=== PATIENT | female | born 1995 | race Caucasian/White ===

== ENCOUNTER 2016-09-05 19:31 | Emergency (ER) | payer OTHER, MEDICAID ==
[~2016-09-05] VITALS: Ht 167.6 cm; Wt 65.7 kg
[~2016-09-05 19:31] MED LIST: PENI500T PO; PRED20 PO
[2016-09-05 19:53] VITALS: BP 98/59; PULSE 88; RESP 18; TEMP 98.5; O2SAT 99
[2016-09-05] MEDS ORDERED: PREN29TA PO (20:06)
[2016-09-05 20:50] VITALS: BP 106/65; PULSE 72; RESP 16; O2SAT 98
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
== END 2016-09-05 21:20 | disposition home or self-care (01) ==
LOC: PHEFT 19:31
DX: O26.892 Other specified pregnancy related conditions, second trimester (principal); S16.1XXA Strain of muscle, fascia and tendon at neck level, initial encounter; V89.2XXA Person injured in unspecified motor-vehicle accident, traffic, initial encounter; Z3A.21 21 weeks gestation of pregnancy; Y92.410 Unspecified street and highway as the place of occurrence of the external cause
CPT/HCPCS: 99284

== ENCOUNTER 2016-11-14 09:06 | Emergency (ER) | payer MEDICAID ==
[~2016-11-14 09:06] MED LIST changes: -PENI500T PO; -PRED20 PO; +PREN29TA PO
[2016-11-14 09:37] VITALS: BP 112/74; PULSE 90; RESP 18
[2016-11-14 09:45] VITALS: TEMP 98.2
[2016-11-14] MEDS ORDERED: PROM25TA10 PO (09:50)
--- NOTE | 2016-11-14 09:51 | PD ---
HPI Chief Complaint Nausea vomiting and diarrhea Date Seen: Nov 14, 2016 Time Seen: 09:45 Travel History International Travel<30 Days: No Contact w/Intl Traveler<30Days: No Known Affected Area: No History of Present Illness HPI Patient is 21-year-old white female at [address] Felton care who presents with nausea vomiting diarrhea since last night. She initially thought she had food poisoning in the had some nausea and vomiting diarrhea get better and then this morning is started back again, she denies abdominal pain leakage of fluid or vaginal bleeding. heart rate tracing is reactive Weeks Gestation: 31 Para: 1 : 2 History Obstetric History Obstetric History One vaginal delivery Social History Alcohol Use: No Tobacco Use: No Substance Abuse: No Allergies-Medications (Allergen,Severity, Reaction): Coded Allergies: No Known Allergies (Verified , 09/05/16) Home Meds Reported Medications Vit-Iron Carbonyl ( Plus Iron 29-1 mg) 1 Tab Tab, 1 TAB PO DAILY for Nutritional Supplement, #30 TAB 0 Refills 09/05/16 Review of Systems General / Constitutional: No: Fever, Weight Gain, Chills, Other Eyes: No: Diploplia, Blurred Vision, Visual changes, Pain, Photophobia HENT: No: Headaches, Vertigo, Lightheadedness Cardiovascular: No: Irregular Rhythm, Chest Pain or Discomfort, Palpitations, Tachycardia, Syncope, Varicosities, Edema, Cyanosis Respiratory: No: Cough, Short of Breath, Other Gastrointestinal: Nausea, Vomiting, Diarrhea Genitourinary: No: Decreased Urinary Output, Oliguria Musculoskeletal: No: Limited ROM, Weakness, Cramping, Edema, Pain Skin: No Rash, No Itching, No Dryness, No Lumps, No Change in Pigmentation, No Change in Nails, No Alopecia, No Lesions Neurologic: No: Weakness, Dizziness, Syncope, Focal Abnormalities, Coordination Problem, Headache, Slurred Speech, Seizures Psychiatric: No: Depression, Suicidal Ideations, Homicidal Ideation Endocrine: No: Heat Intolerance, Cold Intolerance, Polydipsia, Polyuria, Other Physical Exam Narrative GENERAL: Well-nourished, well-developed patient. SKIN: Warm and dry. HEAD: Normocephalic and atraumatic. EYES: No scleral icterus. No injection or drainage. ENT: No nasal drainage noted. Mucous membranes pink. Airway patent. NECK: Supple, trachea midline. No JVD. CARDIOVASCULAR: Regular rate and rhythm without murmurs, gallops, or rubs. RESPIRATORY: Breath sounds equal bilaterally. No accessory muscle use. BREASTS: Bilateral exam showed no masses , no retractions, no nipple discharge. ABDOMEN/GI: Abdomen soft, non-tender, bowel sounds present, no rebound, no guarding Gravid to [31-] weeks size Fundal Height: [-31] Membranes: [intact ] Uterine Contractions: [none-] FHT's: Category: [-1] Baseline: [133-] Reactive: [-yes] Variability: [-mod] Decels: [-none] EXTREMITIES: No cyanosis or edema. BACK: Nontender without obvious deformity. No CVA tenderness. NEUROLOGICAL: Awake and alert. Motor and sensory grossly within normal limits. Five out of 5 muscle strength in all muscle groups. Normal speech. Data Data Orders Orders Vital Signs (Adult) .ON ADMISSION (11/14/16 09:33) ^ Labor Status (11/14/16 09:33) ^ Hydration (11/14/16 09:33) Cbc No Diff, Includes Plts (11/14/16 09:33) Comprehensive Metabolic Panel (11/14/16 09:33) Lactated Ringer's 1000 Ml Inj (Lr 1000 M (11/14/16 09:45) Ondansetron Inj (Zofran Inj) (11/14/16 09:45) MDM Interpretation(s) Patient [id number] white female at 31 weeks who presents with nausea vomiting and diarrhea over the last 1-2 days sporadically. She thought she had food poisoning but she is not sure. Had no medication for this. Heart tones are reactive she is not tim. Plan hydrate with IV fluid IV Zofran check CBC CMP and a urinalysis. Plan Plan will be discharged home probably on Phenergan by mouth, she can use Imodium A-D [id number] for diarrhea. Next follow-up with Dr Felton Diagnosis Diagnosis: Primary Impression: Nausea and vomiting during Additional Impression: 31 weeks gestation of Disposition: DISCHARGE HOME Condition: Stable Scripts Promethazine (Phenergan) 25 Mg Tablet 25 MG PO Q6H Y for NAUSEA OR VOMITING, #20 TAB 0 Refills Prov: Darci Ochoa II, MD 11/14/16 Darci Ochoa II, MD Nov 14, 2016 09:51
[2016-11-14] MEDS ORDERED: ONDANSETRON HCL 4 MG/2 ML VIAL IV PUSH PRN (10:00)
[2016-11-14] MEDS ORDERED: LACTATED RINGER'S 1000 ML INJ 1,000 ML IV ONE (10:00)
[2016-11-14 10:05] LABS: HEMATOCRIT 36.4 % (35.0-46.0); MEAN CELL VOLUME 92.7 FL (80.0-100.0); MEAN CORPUSCULAR HEMOGLOBIN 31.4 PG (27.0-34.0); MEAN CORPUSCULAR HGB CONC 33.9 % (32.0-36.0); PLATELET COUNT 158 TH/MM3 (150-450); RED BLOOD COUNT 3.92 MIL/MM3 (4.00-5.30); RED CELL DISTRIBUTION WIDTH 13.1 % (11.6-17.2); REVIEW FLAG FINAL; WHITE BLOOD COUNT 5.7 TH/MM3 (4.0-11.0)
[2016-11-14 10:24] LABS: ANION GAP 9 MEQ/L (5-15); AST (GOT) 11 U/L (15-37); BICARBONATE 25.2 MEQ/L (21.0-32.0); BLOOD UREA NITROGEN 5 MG/DL (7-18); CHLORIDE 102 MEQ/L (98-107); GLOMERULAR FILTRATION RATE 182 ML/MIN (>89); POTASSIUM 3.8 MEQ/L (3.5-5.1); SODIUM (NA) 136 MEQ/L (136-145)
[2016-11-14 10:25] LABS: ALT (GPT) 12 U/L (10-53)
[2016-11-14 10:27] LABS: ALKALINE PHOSPHATASE 71 U/L (45-117); TOTAL BILIRUBIN ADULT 0.3 MG/DL (0.2-1.0)
== END 2016-11-14 10:45 | disposition home or self-care (01) ==
LOC: HOBED 09:06
DX: O21.2 Late vomiting of pregnancy (principal); Z3A.31 31 weeks gestation of pregnancy
CPT/HCPCS: 80053; 85027; 96361; 96374; 99284; J2405; J7120

== ENCOUNTER 2016-12-26 12:19 | Emergency (ER) | payer MEDICAID ==
[~2016-12-26] VITALS: Ht 167.6 cm; Wt 80.0 kg
[~2016-12-26 12:19] MED LIST changes: +PROM25TA10 PO
[2016-12-26 12:21] VITALS: BP 119/73; PULSE 92; RESP 13; TEMP 98.6; O2SAT 99
[2016-12-26] MEDS ORDERED: AMOX500C PO (13:22)
--- NOTE | 2016-12-26 13:23 | PD ---
HPI Chief Complaint: Cold / Flu Symptoms Time Seen by Provider: 13:20 Travel History International Travel<30 days: No Contact w/Intl Traveler<30days: No Traveled to known affect area: No History of Present Illness HPI 21-year-old female, 37 weeks , presents to the emergency Department with complaint of sinus pressure, nasal congestion, headache, sore throat 2 weeks. Denies fevers. Denies cough. Reports ear pressure. Saw her beam house inspector, Dr. Felton, and was told to take Tylenol. Says she feels miserable and has tried "shaking" it off, but has not been able to feel better. She is also concerned of the baby. She reports pressure to the top and bottom of her abdomen. Says she hasn't realized that the baby's been moving as much as he normally has been. Denies vaginal discharge, leakage, bleeding. Has tried hot air humidifier and took Tylenol yesterday for symptom management. No known relieving or aggravating factors. No known allergies. Has no other medical complaints. No other modifying factors or associated signs and symptoms. PFSH Past Medical History Medical History: Denies Significant Hx Asthma: No Autoimmune Disease: No Blood Disorders: No Anxiety: Yes Depression: Yes Cardiovascular Problems: No Diminished Hearing: No Gastrointestinal Disorders: Yes Genitourinary: No Neurologic: No Psychiatric: No Respiratory: No Immunizations Current: No Tetanus Vaccination: Unknown Influenza Vaccination: No ?: LMP: APR 2016 : 2 Para: 1 Past Surgical History Surgical History: No Previous Surgery Other Surgery: No Social History Alcohol Use: No Tobacco Use: No Substance Use: No Allergies-Medications (Allergen,Severity, Reaction): Coded Allergies: No Known Allergies (Verified , 12/26/16) Reported Meds & Prescriptions Reported Meds & Active Scripts Active Amoxicillin 500 Mg Cap 500 Mg PO BID 10 Days Phenergan (Promethazine HCl) 25 Mg Tablet 25 Mg PO Q6H PRN Reported Plus Iron 29-1 mg ( Vit-Iron Carbonyl) 1 Tab Tab 1 Tab PO DAILY Review of Systems Except as stated in HPI: all other systems reviewed are Neg Physical Exam Narrative GENERAL: Well-nourished, well-developed female patient, in no acute distress SKIN: Warm and dry. No rash. HEAD: Atraumatic. Normocephalic. Frontal and maxillary sinus tenderness on palpation. EYES: Pupils equal and round at 3 mm with brisk reaction. No scleral icterus. No injection or drainage. PERRLA. ENT: Mucosa pink and moist. Oropharynx without erythema, exudates, tonsillar edema.. No uvular edema. No uvular, palatal, or tonsillar deviation. Airway patent. EARS: Bilateral pinnae and external canals appear within normal limits. Right tympanic membrane is erythematous, dull and with loss of landmarks; no perforation. Left tympanic membranes without erythema, dullness or perforation. NECK: Trachea midline. No lymphadenopathy. CARDIOVASCULAR: Regular rate and rhythm. No murmur appreciated. RESPIRATORY: No accessory muscle use. Clear to auscultation. Breath sounds equal bilaterally. GASTROINTESTINAL: . MUSCULOSKELETAL: No obvious deformities. No clubbing. No cyanosis. No edema. NEUROLOGICAL: Awake and alert. Oriented 3. No obvious cranial nerve deficits. Motor grossly within normal limits. Normal speech. Moves all extremities. 5/5 strength to all extremities. PSYCHIATRIC: Appropriate mood and affect; insight and judgment normal. Data Data Last Documented VS Vital Signs Date Time Temp Pulse Resp B/P (MAP) Pulse Ox O2 Delivery O2 Flow Rate FiO2 12/26/16 13:40 12/26/16 12:48 Room Air 12/26/16 12:21 98.6 92 13 99 Orders Orders Acetaminophen (Tylenol) (12/26/16 13:30) Ed Discharge Order (12/26/16 13:23) Attending Discharge Order (12/26/16 ) [facility] Medical Decision Making Medical Screen Exam Complete: Yes Emergency Medical Condition: Yes Medical Record Reviewed: Yes Differential Diagnosis Sinusitis, upper respiratory infection, otitis media, pharyngitis, viral illness Narrative Course 21-year-old female physical examination consistent with sinusitis and right otitis media. Patient is 37 weeks and is reporting pressure to the top and bottom of her abdomen and is concerned the baby hasn't been moving as much as normal. Denies vaginal bleeding, discharge, leakage. Tylenol administered in the ER. Patient taken to OB ED for further treatment and evaluation. Amoxicillin prescribed for home. Instructed patient to follow up with primary care provider. Patient verbalizes understanding and agreement with treatment plan. Patient is medically cleared and stable for discharge. Discussed reasons to return to the emergency department. Patient agrees with treatment plan. The patients vital signs are stable and the patient is stable for outpatient follow-up and treatment. Patient discharged home, stable and in no acute distress. Diagnosis Primary Impression: Right otitis media Qualified Codes: H66.91 - Otitis media, unspecified, right ear Additional Impression: Sinusitis Qualified Codes: J32.9 - Chronic sinusitis, unspecified Referrals: [facility] [address] Ship Runner Primary Care Physician Patient Instructions: General Instructions, Serous Otitis Media (ED), Sinusitis (ED) Additional Instructions: Antibiotics as prescribed and complete full course Tylenol as instructed and as needed for fever/pain Get plenty of sleep/rest Drink plenty of fluids to prevent dehydration; popsicles and Gatorade Use an air humidifier/turn off ceiling fans Follow-up with primary care provider Return immediately to the emergency department with worsening of symptoms Med/Other Pt SpecificInfo: Prescription(s) given Scripts Amoxicillin (Amoxicillin) 500 Mg Cap 500 MG PO BID for Infection for 10 Days, #20 CAP 0 Refills Prov: Chelsea Rider 12/26/16 Disposition: 01 DISCHARGE HOME Condition: Stable Chelsea Rider Dec 26, 2016 13:23
[2016-12-26] MEDS ORDERED: ACETAMINOPHEN 325 MG TAB PO ONE (13:30)
--- NOTE | 2016-12-26 14:31 | PD ---
HPI Chief Complaint Patient initially presented with sinus symptoms the main ER. Down in the ER she also documented some decreased movement and pelvic pressure Date Seen: Dec 26, 2016 Time Seen: 14:20 Travel History International Travel<30 Days: No Contact w/Intl Traveler<30Days: No Known Affected Area: No History of Present Illness HPI Patient is 21-year-old white female who presents at 37 weeks and presented the main emergency room with sinus symptoms. She was evaluated and diagnosed with the sinusitis treated with amoxicillin. While she is down there she describes decreased movement and pelvic pressures today so they sent her to OB ED she denies pain bleeding or leakage of fluid. Baby is now active here. She states the baby was always moving is just moved a little bit less today and so that's what she told the ER, heart rate tracing reactive she is having occasional contraction. Weeks Gestation: 37 Para: 1 : 2 History Obstetric History Obstetric History One vaginal delivery Social History Alcohol Use: No Tobacco Use: No Substance Abuse: No Allergies-Medications (Allergen,Severity, Reaction): Coded Allergies: No Known Allergies (Verified , 12/26/16) Home Meds Active Scripts Amoxicillin (Amoxicillin) 500 Mg Cap, 500 MG PO BID for Infection for 10 Days, # 20 CAP 0 Refills Prov:Chelsea Rider 12/26/16 Promethazine (Phenergan) 25 Mg Tablet, 25 MG PO Q6H Y for NAUSEA OR VOMITING, # 20 TAB 0 Refills Prov:Darci Ochoa II, MD 11/14/16 Reported Medications Vit-Iron Carbonyl ( Plus Iron 29-1 mg) 1 Tab Tab, 1 TAB PO DAILY for Nutritional Supplement, #30 TAB 0 Refills 09/05/16 Review of Systems General / Constitutional: No: Fever, Weight Gain, Chills, Other Eyes: No: Diploplia, Blurred Vision, Visual changes, Pain, Photophobia HENT: No: Headaches, Vertigo, Lightheadedness Cardiovascular: No: Irregular Rhythm, Chest Pain or Discomfort, Palpitations, Tachycardia, Syncope, Varicosities, Edema, Cyanosis Respiratory: Other Gastrointestinal: No: Nausea, Vomiting, Diarrhea Genitourinary: Pelvic Pain, No: Decreased Urinary Output, Oliguria Musculoskeletal: No: Limited ROM, Weakness, Cramping, Edema, Pain Skin: No Rash, No Itching, No Dryness, No Lumps, No Change in Pigmentation, No Change in Nails, No Alopecia, No Lesions Neurologic: No: Weakness, Dizziness, Syncope, Focal Abnormalities, Coordination Problem, Headache, Slurred Speech, Seizures Psychiatric: No: Depression, Suicidal Ideations, Homicidal Ideation Endocrine: No: Heat Intolerance, Cold Intolerance, Polydipsia, Polyuria, Other Physical Exam Vital Signs Date Time Temp Pulse Resp B/P (MAP) Pulse Ox O2 Delivery O2 Flow Rate FiO2 12/26/16 13:40 12/26/16 12:48 Room Air 12/26/16 12:21 98.6 92 13 119/73 (88) 99 Narrative GENERAL: Well-nourished, well-developed patient. SKIN: Warm and dry. HEAD: Normocephalic and atraumatic. EYES: No scleral icterus. No injection or drainage. ENT: No nasal drainage noted. Mucous membranes pink. Airway patent. NECK: Supple, trachea midline. No JVD. CARDIOVASCULAR: Regular rate and rhythm without murmurs, gallops, or rubs. RESPIRATORY: Breath sounds equal bilaterally. No accessory muscle use. BREASTS: Bilateral exam showed no masses , no retractions, no nipple discharge. ABDOMEN/GI: Abdomen soft, non-tender, bowel sounds present, no rebound, no guarding Gravid to [-37] weeks size Fundal Height: [-37] GENITOURINARY: External Genitalia: intact and normal in appearance BUS glands: [-] Cervix: [-] Dilatation: [0-] Effacement: [50-] Station: [-3] Presentation: [-vtx] Membranes: [intact ] Uterine Contractions: [-occasional] FHT's: Category: [-1] Baseline: [-133] Reactive: [-yes] Variability: [mod-] Decels: [-0] EXTREMITIES: No cyanosis or edema. BACK: Nontender without obvious deformity. No CVA tenderness. NEUROLOGICAL: Awake and alert. Motor and sensory grossly within normal limits. Five out of 5 muscle strength in all muscle groups. Normal speech. Data Data Orders Orders Acetaminophen (Tylenol) (12/26/16 13:30) Ed Discharge Order (12/26/16 13:23) MDM Interpretation(s) Patient is 21-year-old white female at [address] Felton for care and presented here for sinus symptoms in the main ER and she was treated with amoxicillin and then sent to OB ED for evaluation of decreased movement and pelvic pressure. Patient heart rate tracing is reactive she is having occasional contraction. Cervix is closed and high. Patient's baby is moving now. Plan Plan to discharge the patient today of white counts. She can continue take her ampicillin, she should use Claritin to help dry up her sinuses also can use a nasal spray to get immediate relief her symptoms congestion. Tylenol is good for aches and pains or low-grade fever she is to continue to by mouth hydrate and follow up with her OB provider Diagnosis Diagnosis: Primary Impression: Right otitis media Qualified Codes: H66.91 - Otitis media, unspecified, right ear Additional Impressions: Sinusitis Qualified Codes: J32.9 - Chronic sinusitis, unspecified Decreased movement affecting management of in third trimester Disposition: 01 DISCHARGE HOME Condition: Stable Scripts Amoxicillin (Amoxicillin) 500 Mg Cap 500 MG PO BID for Infection for 10 Days, #20 CAP 0 Refills Prov: Chelsea Rider [facility] 12/26/16 Referrals: [facility] [employer] Export Agent Primary Care Physician Patient Instructions: General Instructions, Sinusitis (ED), Serous Otitis Media (ED) Additional Instructions: Antibiotics as prescribed and complete full course Tylenol as instructed and as needed for fever/pain Get plenty of sleep/rest Drink plenty of fluids to prevent dehydration; popsicles and Gatorade Use an air humidifier/turn off ceiling fans Follow-up with primary care provider Return immediately to the emergency department with worsening of symptoms Departure Forms: Tests/Procedures Darci Ochoa II, MD Dec 26, 2016 14:31
== END 2016-12-26 14:34 | disposition home or self-care (01) ==
LOC: NEPK 12:19 → HOBED 14:34
DX: O36.8130 Decreased fetal movements, third trimester, not applicable or unspecified (principal); Z3A.37 37 weeks gestation of pregnancy; H66.91 Otitis media, unspecified, right ear; J32.9 Chronic sinusitis, unspecified
CPT/HCPCS: 59025

== ENCOUNTER 2017-01-16 11:49 | Emergency (ER) | payer MEDICAID ==
[~2017-01-16] VITALS: Ht 170.2 cm; Wt 85.0 kg
[~2017-01-16 11:49] MED LIST changes: -CIPR0.3S LEFT EAR; -IBUP1TAB7 PO; -PERI PO
[2017-01-16 11:51] VITALS: BP 119/65; PULSE 81; RESP 16; TEMP 98.4; O2SAT 100
--- NOTE | 2017-01-16 13:44 | PD ---
HPI Chief Complaint: ENT Complaint Time Seen by Provider: 13:21 Travel History International Travel<30 days: No Contact w/Intl Traveler<30days: No Traveled to known affect area: No History of Present Illness HPI 20-year-old female presents emergency department complaining of left ear pain and otorrhea for 1 day. States that she has had ear pain for about 3 days and had excruciating pain yesterday described as constant, quick onset and has some decreased hearing as a result. This occurred for about 20-30 minutes. Patient denies tinnitus. States she hears fluid in her ear. Says she thinks she has blood coming from her ear. Denies any foreign objects, although she does use Q- tips. She tried peroxide without relief. States that she is just getting over a sinus infection but feels congested. She finished amoxicillin approximately 2 weeks ago. She is 40 weeks . PFSH Past Medical History Asthma: No Autoimmune Disease: No Blood Disorders: No Anxiety: Yes Depression: Yes Cardiovascular Problems: No Diminished Hearing: No Gastrointestinal Disorders: Yes Genitourinary: No Neurologic: No Psychiatric: No Respiratory: No Immunizations Current: No ?: : 2 Para: 1 Past Surgical History Other Surgery: No Social History Alcohol Use: No Tobacco Use: No Substance Use: No Allergies-Medications (Allergen,Severity, Reaction): Coded Allergies: No Known Allergies (Verified , 12/26/16) Reported Meds & Prescriptions Reported Meds & Active Scripts Active Amoxicillin 500 Mg Cap 500 Mg PO BID 10 Days Ciprodex Otic Drops (Ciprofloxacin-Dexamethasone Otic Drops) 0.3-0.1% Susp 4 Drop LEFT EAR BID Amoxicillin 500 Mg Cap 500 Mg PO BID 10 Days Phenergan (Promethazine HCl) 25 Mg Tablet 25 Mg PO Q6H PRN Reported Plus Iron 29-1 mg ( Vit-Iron Carbonyl) 1 Tab Tab 1 Tab PO DAILY Review of Systems Except as stated in HPI: all other systems reviewed are Neg Physical Exam Narrative GENERAL: Well-nourished, well-developed patient. SKIN: Focused skin assessment warm/dry. HEAD: Normocephalic. EYES: No scleral icterus. No injection or drainage. Left ear- significant cerumen impaction- otorrhea with cerumen Right ear significant cerumen impaction impeding my ability to observe the tympanic membrane- NECK: Supple, trachea midline. No JVD or lymphadenopathy. CARDIOVASCULAR: Regular rate and rhythm without murmurs, gallops, or rubs. RESPIRATORY: Breath sounds equal bilaterally. No accessory muscle use. GASTROINTESTINAL: Abdomen soft, non-tender, nondistended. MUSCULOSKELETAL: No cyanosis, or edema. BACK: Nontender without obvious deformity. No CVA tenderness. Data Data Last Documented VS Vital Signs Date Time Temp Pulse Resp B/P (MAP) Pulse Ox O2 Delivery O2 Flow Rate FiO2 01/16/17 15:10 01/16/17 11:51 98.4 81 16 100 Orders Orders Ed Discharge Order (01/16/17 14:52) MDM Medical Decision Making Medical Screen Exam Complete: Yes Emergency Medical Condition: Yes Differential Diagnosis Cerumen impaction versus otitis externa versus tympanic membrane rupture Narrative Course 20-year-old female presents emergency department complaining of left ear pain and otorrhea for 1 day. States that she has had ear pain for about 3 days and had excruciating pain yesterday described as constant, quick onset and has some decreased hearing as a result. This occurred for about 20-30 minutes. Patient denies tinnitus. States she hears fluid in her ear. Says she thinks she has blood coming from her ear. Denies any foreign objects, although she does use Q- tips. She tried peroxide without relief. States that she is just getting over a sinus infection but feels congested. She finished amoxicillin approximately 2 weeks ago. She is 40 weeks . Vital signs stable Physical exam- initial exam demonstrates cerumen impaction bilateral ears. After irrigation - Left ear-tympanic membrane incompletely visualized secondary to excessive skin and ear wax. Potential rupture as the TM was dull on visualization. Whisper test- hearing slightly diminished on the left compared to the right. I explained to patient thoroughly that she should see an ear nose and throat doctor throughout the visit and patient and mother asked 3 or 4 times about why the membrane may have ruptured. I explained the pathophysiology 3 and 4 times. I discussed this case with my attending Dr. Montenegro as the family became more agitated throughout the visit. Patient to follow-up with early childhood education specialist within 3 days. Family was insistent on the producing a referral however, she is not policy and was not done. I explained multiple times that this is not if condition in which she needs to be admitted for or have imaging. Ciprodex and amoxicillin for potential otitis externa and residual sinusitis. Diagnosis Primary Impression: Cerumen impaction Qualified Codes: H61.23 - Impacted cerumen, bilateral Additional Impression: Tympanic membrane rupture Qualified Codes: H72.92 - Unspecified perforation of tympanic membrane, left ear Referrals: Ear / Nose / Throat Specialist Additional Instructions: Follow-up with her primary care physician within 2 days. Follow up with your lab clerk within 2 days Use earwax softening solution 1-2 times daily Scripts Amoxicillin (Amoxicillin) 500 Mg Cap 500 MG PO BID for Infection for 10 Days, #20 CAP 0 Refills Prov: Leon Montenegro MD 01/16/17 Ciprofloxacin-Dexamethasone Otic Drops (Ciprodex Otic Drops) 0.3-0.1% Susp 4 DROP LEFT EAR BID for Infection, #1 BOTTLE 0 Refills Prov: Leon Montenegro MD 01/16/17 Disposition: 01 DISCHARGE HOME Condition: Stable Meghan Gomez Jan 16, 2017 13:44
[2017-01-16] MEDS ORDERED: CIPR0.3S LEFT EAR (14:42)
[2017-01-16] MEDS ORDERED: AMOX500C PO (14:49)
== END 2017-01-16 15:10 | disposition home or self-care (01) ==
LOC: NEPK 11:49
DX: O99.89 Other specified diseases and conditions complicating pregnancy, childbirth and the puerperium (principal); H61.23 Impacted cerumen, bilateral; H72.92 Unspecified perforation of tympanic membrane, left ear; Z3A.40 40 weeks gestation of pregnancy
CPT/HCPCS: 69210

== ENCOUNTER → 2017-01-16 | Outpatient (CLI) | payer MEDICAID ==
[~2017-01-16] MED LIST changes: +AMOX500C PO; +CIPR0.3S LEFT EAR; +IBUP1TAB7 PO; +PERI PO
== END ==
LOC: HPND 08:56
PROVIDERS: ATTEND Obstetrics & Gynecology
DX: O48.0 Post-term pregnancy (principal)
CPT/HCPCS: 76816; 76818

== ENCOUNTER 2017-01-20 11:35 | Inpatient (IN) | payer MEDICAID ==
[~2017-01-20] VITALS: Ht 167.6 cm; Wt 82.0 kg
[2017-01-20] VITALS (63 sets, daily range): BP systolic 77–125; BP diastolic 40–83; PULSE 57–102; RESP 16–18; TEMP 98–98.1; O2SAT 94–100
[~2017-01-20 11:35] MED LIST changes: +CIPR0.3S LEFT EAR
[2017-01-20] MEDS ORDERED: LACTATED RINGER'S 1000 ML INJ 1,000 ML IV PRN (13:37)
[2017-01-20] MEDS ORDERED: LIDOCAINE HCL 1% 50 ML VIAL INFIL PRN (13:45)
[2017-01-20] MEDS ORDERED: MINERAL OIL 10 ML VIAL TOPICAL PRN (13:45)
[2017-01-20] MEDS ORDERED: OXYTOCIN 30 UNITS-500ML PREMIX 500 ML IV ONE (13:45)
[2017-01-20] MEDS ORDERED: SODIUM CHLORID 0.9% 500 ML INJ 500 ML IV PRN (13:45)
[2017-01-20] MEDS ORDERED: OXYTOCIN 30 UNITS-500ML PREMIX 500 ML IV SCH (13:45)
[2017-01-20] MEDS ORDERED: CITRIC ACID-SODIUM CITRATE LIQ 30 ML UDC PO SCH (13:45)
[2017-01-20] MEDS ORDERED: LIDOCAINE HCL 1% 50 ML VIAL I-DERMAL PRN (13:45)
[2017-01-20] MEDS ORDERED: SODIUM CHLOR 0.9% 1000 ML INJ 1,000 ML IV PRN (13:57)
--- NOTE | 2017-01-20 13:58 | MH ---
cc: BLANCA FELTON DATE OF ADMISSION: 01/20/2017 HISTORY OF PRESENT ILLNESS Wesley is a 21-year-old white female, para 1-0-0-1, who presented to the office today at 40 weeks and 4 days. Her cervix was inducible and I do not want her to go over the without being delivered. We discussed the rationale between letting her go versus delivering her today, and it would be much better for her to deliver now. She is being admitted for rupture of membranes and possible augmentation with Pitocin. PAST OB HISTORY Para 1-0-0-1. She had without any problems. She has O-negative blood and she received her RhoGAM at 28 weeks. PAST DIRECTOR ONCOLOGY HISTORY Positive for CT. We have done two tests of cure; the most recent was 12/10/2016 which was negative. PAST SURGICAL HISTORY Negative. PAST MEDICAL HISTORY She recently had the diagnosis of a ruptured eardrum. She was put on antibiotics but she did not take them. SOCIAL HISTORY She never smoked, never drinks. She is single. She denies any drug use. She lives with her domestic partner. FAMILY HISTORY Negative. ALLERGIES No known drug allergies. MEDICATIONS Current medications are vitamins, one p.o. q. day. REVIEW OF SYSTEMS She denies headaches or scotoma. No shortness of breath. No chest pain. No regular uterine contractions. No abdominal pain. No rupture of membranes or bleeding. PHYSICAL EXAMINATION GENERAL: A well-developed, well-nourished female in no acute distress. HEENT: Normocephalic, atraumatic. NECK: Supple. Trachea is midline. No thyromegaly or adenopathy. CHEST: Clear to auscultation and percussion. HEART: Regular rate and rhythm without murmur. ABDOMEN: Gravid, nontender. The fundus is nontender. CERVIX: 3 cm, 80% effaced, -2 station. EXTREMITIES: No clubbing, cyanosis or edema. ASSESSMENT AND PLAN 1. Intrauterine at 40 weeks 4 days, with an inducible cervix. Will go ahead and admit her for rupture of membranes and break her water. 2. History of CT. She has had two tests for cure; the most recent last month and it was negative. 3. Rh negative. Will give her RhoGAM if needed. R. Blanca Felton MD RJV/BT /1:33 PM /1:43 PM
[2017-01-20] MEDS: LACTATED RINGER'S 1000 ML INJ 1,000 ML IV SCH ×3 (14:20→22:35)
[2017-01-20 14:27] LABS: AUTOMATED NEUTROPHIL # 8.5 TH/MM3 (1.8-7.7); BASOPHIL % 0.4 % (0.0-2.0); EOSINOPHIL % 0.3 % (0.0-4.0); HEMATOCRIT 32.1 % (35.0-46.0); HEMO FLAGS DIFF FINAL; LYMPH % 15.1 % (9.0-44.0); LYMPHOCYTE # 1.7 TH/MM3 (1.0-4.8); MEAN CORPUSCULAR HEMOGLOBIN 30.9 PG (27.0-34.0); MEAN CORPUSCULAR HGB CONC 34.7 % (32.0-36.0); NEUT % 76.2 % (16.0-70.0); PLATELET COUNT 183 TH/MM3 (150-450); RED BLOOD COUNT 3.61 MIL/MM3 (4.00-5.30); WHITE BLOOD COUNT 11.1 TH/MM3 (4.0-11.0)
[2017-01-20 14:32] LABS: BACTERIA, URINE FEW /hpf; BLOOD, URINE MOD (NEG); GLUCOSE,URINE NEG (NEG); KETONE, URINE NEG (NEG); NITRITE,URINE NEG (NEG); PH, URINE 6.5 (5.0-8.5); SQUAMOUS EPITHELIAL CELL URINE 9 /hpf (0-5); URINE COLOR LIGHT-YELLOW (YELLW/STRAW)
[2017-01-20 14:33] LABS: COMMENT (UR) CULTURE INDICATED; CULTURE IF INDICATED CULTURE INDICATED
[2017-01-20] MEDS ORDERED: fentaNYL 2MCG-BUPIV 0.125% INJ 100 ML ONE (21:06)
[2017-01-20] MEDS ORDERED: ePHEDrine/NS 25 MG/5 ML SYR ONE (21:06)
[2017-01-20] MEDS ORDERED: NO SYSTEM NARCOTICS PRN (21:45)
[2017-01-20] MEDS ORDERED: DO NOT ADMINISTER ANTICOAGULANTS PRN (21:45)
[2017-01-20] MEDS: fentaNYL 2MCG-BUPIV 0.125% 100 ML EPIDURAL SCH (21:49)
[2017-01-20] MEDS: ePHEDrine/NS 25 MG/5 ML SYR IV PUSH PRN ×3 (21:55→22:47)
[2017-01-21] VITALS (53 sets, daily range): BP systolic 90–116; BP diastolic 47–74; PULSE 68–101; RESP 16–20; TEMP 97.5–99.3; O2SAT 94–99
[2017-01-21] MEDS: fentaNYL 2MCG-BUPIV 0.125% 100 ML EPIDURAL SCH (04:07)
--- NOTE | 2017-01-21 07:42 | PD.OB.DELI ---
Weeks gestation: 40 Gest age assessed date: Jan 20, 2017 Gest age assessed time: 09:30 Pt started active labor?: Yes Active labor start date: Jan 21, 2017 Active labor start time: 06:00 Medical induction of labor?: Yes Medical induction start date: Jan 20, 2017 Medical induction start time: 14:00 Artificial rupture of membrane: No Anesthesia: Epidural Episiotomy: None Vaginal Delivery: Normal Presentation: Occiput anterior Nuchal Cord: None Delayed cord clamping (45 sec): Yes Infant: Male Delivery date: Jan 21, 2017 Delivery time: 07:20 One Minute : 8 Five Minute : 9 Weight: [id number] Placenta: Spontaneous delivery Laceration: Perineal laceration, 2 deg Repair: Vicryl running Estimated blood loss: 250 Additional Information nice delivery of jokarlene. srom and went fast small 2nd degree laceration. Vianca Felton MD Jan 21, 2017 07:42
[2017-01-21] MEDS ORDERED: OXYTOCIN 30 UNITS-500ML PREMIX 500 ML IV SCH (07:45)
[2017-01-21] MEDS ORDERED: BENZOCAINE 20% TOPICAL SPRAY 60 ML CAN TOPICAL PRN (07:45)
[2017-01-21] MEDS ORDERED: SODIUM CHLORIDE 0.9% FLUSH 10 ML FLUSH IV FLUSH PRN (07:45)
[2017-01-21] MEDS ORDERED: ONDANSETRON ODT 4 MG TAB PO PRN (07:45)
[2017-01-21] MEDS ORDERED: WITCH HAZEL 50%/GLYCERIN 12.5% 40 PAD JAR TOPICAL PRN (07:45)
[2017-01-21] MEDS ORDERED: ACETAMINOPHEN 325 MG TAB PO PRN (07:45)
[2017-01-21] MEDS ORDERED: ZOLPIDEM TARTRATE 5 MG TAB PO PRN (07:45)
[2017-01-21] MEDS ORDERED: oxyCODONE/ACETAMINOPHEN 5 MG/325 MG TAB PO PRN (07:45)
[2017-01-21] MEDS ORDERED: OXYTOCIN 30 UNITS-500ML PREMIX 500 ML IV ONE (07:45)
[2017-01-21] MEDS ORDERED: ALUMINUM/MAGNESIUM/SIMETH 30 ML CUP PO PRN (07:45)
[2017-01-21] MEDS ORDERED: DOCUSATE SODIUM 50 MG/SENNA 8.6 MG TAB PO PRN (07:45)
[2017-01-21] MEDS ORDERED: SODIUM CHLORIDE 0.9% FLUSH 10 ML FLUSH IV FLUSH SCH (09:00)
--- NOTE | 2017-01-21 11:22 | HHI.DCPOC ---
Discharge Care Plan Diagnosis: (1) (normal spontaneous vaginal delivery) Your Health Problems Are: Vaginal delivery Report Symptoms to Your Doctor -Temperature above 100.5 degrees -Redness, of incision or excessive or foul smelling drainage -Unusual pain or calf pain -Increased vaginal bleeding -Painful or difficulty urinating -Feelings of extreme sadness or anxiety after 2 weeks Goals to Promote Your Health * To prevent worsening of your condition and complications * To maintain your health at the optimal level Directions to Meet Your Goals Take your medications as prescribed Follow your dietary instruction Follow activity as directed Ensure plenty of rest for recovery Drink fluids for hydration Keep your appointments as scheduled Take your immunizations and boosters as scheduled If your symptoms worsen call your PCP, if no PCP go to Urgent Care Center or Emergency Room Smoking is Dangerous to Your Health. Avoid second hand smoke Call the 24-hour crisis hotline for domestic abuse at Andreia Ying Jan 21, 2017 11:22
[2017-01-21] MEDS: MULTIVIT/MIN/PREN/FOL AC/IRON PRENATAL TAB PO SCH (13:05)
[2017-01-21] MEDS: IBUPROFEN 800 MG TAB PO PRN ×2 (13:05→22:33)
[2017-01-21] MEDS ORDERED: IBUP1TAB7 PO (14:50)
[2017-01-21] MEDS ORDERED: MEASLES, MUMPS, RUBELLA VACCINE 0.5 ML VIAL SQ ONE (16:00)
[2017-01-21] MEDS ORDERED: DIPHTH/TETANUS/ACEL PERTUSSIS (BOOSTER) 0.5 ML VIAL/PFS IM ONE (16:00)
[2017-01-22 08:00] VITALS: BP 114/77; PULSE 58; RESP 18; TEMP 97.7
[2017-01-22] MEDS: MULTIVIT/MIN/PREN/FOL AC/IRON PRENATAL TAB PO SCH (08:10)
[2017-01-22] MEDS: IBUPROFEN 800 MG TAB PO PRN (08:10)
--- NOTE | 2017-01-22 08:13 | HHI.OB ---
Subjective Post Day: 1 Remarks s/p uncomplicated of healthy full term male Objective Vitals/I&O Vital Signs Date Time Temp Pulse Resp B/P (MAP) Pulse Ox O2 Delivery O2 Flow Rate FiO2 01/21/17 20:15 97.7 74 18 114/70 (85) 01/21/17 10:25 89 20 110/63 (79) 01/21/17 10:25 98.4 98 01/21/17 09:25 16 01/21/17 09:15 75 107/66 (80) 01/21/17 09:10 16 01/21/17 09:00 85 97/70 (79) 01/21/17 08:55 18 01/21/17 08:45 83 104/74 (84) 01/21/17 08:40 16 01/21/17 08:30 87 116/68 (84) 01/21/17 08:25 16 01/21/17 08:15 88 111/72 (85) Objective Remarks GENERAL: Well-nourished, well-developed patient. CARDIOVASCULAR: Regular rate and rhythm without murmurs, gallops, or rubs. RESPIRATORY: Breath sounds equal bilaterally. No accessory muscle use. ABDOMEN/GI: Abdomen soft, non-tender. Fundus: Firm, non-tender at umbilicus. GENITOURINARY: Light to moderate bleeding. EXTREMITIES: No cyanosis or edema, non-tender, without signs of DVT. Medications and IVs Current Medications Medications (Trade) Dose Ordered Sig/Fiona Route Start Time Stop Time Status Last Admin (NS Flush) 2 ml BID IV FLUSH 01/21/17 09:00 (NS Flush) 2 ml UNSCH PRN IV FLUSH 01/21/17 07:45 (Tylenol) 650 mg Q4H PRN PO 01/21/17 07:45 (Motrin) 800 mg Q8H PRN PO 01/21/17 07:45 01/21/17 22:33 (Percocet 5-325 Mg) 1 tab Q4H PRN PO 01/21/17 07:45 (Americaine 20% Top Spr) 1 spray Q4H PRN TOPICAL 01/21/17 07:45 01/21/17 13:06 (Tucks Pads) 1 applic QID PRN TOPICAL 01/21/17 07:45 01/21/17 13:06 (Romy-Colace) 2 tab Q12H PRN PO 01/21/17 07:45 (Ambien) 5 mg HS PRN PO 01/21/17 07:45 (Mag-Al Plus Susp Liq) 15 ml Q8H PRN PO 01/21/17 07:45 (Zofran Odt) 4 mg Q6H PRN PO 01/21/17 07:45 (Stuartnatal Plus 3 ) 1 tab DAILY PO 01/21/17 09:00 01/21/17 13:05 Assessment/Plan Problem List: (1) (normal spontaneous vaginal delivery) ICD Codes: O80 - (normal spontaneous vaginal delivery) Status: Acute Assessment and Plan PPD#1 delivered early yesterday morning meeting all criteria d/c when infant cleared later today routine office f/u w Dr. Felton Discharge Planning routine Vilma Villalpando MD Jan 22, 2017 08:13
[2017-01-22] MEDS ORDERED: PERI PO (08:14)
== END 2017-01-22 12:44 | disposition home or self-care (01) | DRG 775 ==
LOC: H2EA 11:35 → H1EA 01-21 09:53
PROVIDERS: ADMIT Obstetrics & Gynecology; ATTEND Obstetrics & Gynecology
PROC: 3E0P3VZ Introduction of Hormone into Female Reproductive, Percutaneous Approach (ICD-10-PCS; 2017-01-20)
PROC: 10E0XZZ Delivery of Products of Conception, External Approach (ICD-10-PCS; principal; 2017-01-21)
PROC: 0KQM0ZZ Repair Perineum Muscle, Open Approach (ICD-10-PCS; 2017-01-21)
DX: O70.1 Second degree perineal laceration during delivery (principal); Z37.0 Single live birth; Z3A.40 40 weeks gestation of pregnancy
CPT/HCPCS: 59025; 80307; 81001; 85025; 87086; J2590; J7120